=== PATIENT | female | born 1945 | race Caucasian/White ===

== ENCOUNTER 2020-04-26 10:16 | Observation (INO) ==
--- NOTE | 2020-03-17 11:40 | PAT Medication Instructions ---
Medication Instructions Date of Service March 17, 2020 Home Medications atorvastatin 40 mg tablet 40 mg PO HS citalopram 10 mg tablet 10 mg PO QAM citalopram 20 mg tablet 20 mg PO QAM clindamycin phosphate 1 % lotion 1 appln TOP BID diclofenac sodium 1 % topical gel 4 gm TOP .COMPLEX doxycycline hyclate 50 mg capsule 50 mg PO Q2D insulin aspar prt-insulin aspart 100 unit/mL (70-30) subcutaneous soln See Rx Instructions lorazepam 1 mg tablet 1 mg PO QAM losartan 100 mg tablet 100 mg PO QAM metformin 850 mg tablet 850 mg PO BID vitamins A,C,D-uhhn-uprefa 14,320 unit-226 mg-200 unit capsule 1 cap PO BID amlodipine 5 mg tablet 5 mg PO QDL cyanocobalamin (vitamin B-12) 1,000 mcg capsule 1,000 mcg PO QAM aspirin [Enteric Coated Aspirin] 81 mg PO QAM atenolol 50 mg PO HS cholecalciferol (vitamin D3) 2,000 units PO QAM empagliflozin [Jardiance] 25 mg PO QDL tolterodine 2 mg PO QAM Continue as directed doxycycline hyclate 50 mg capsule 50 mg PO Q2D amlodipine 5 mg tablet 5 mg PO QDL (if surgery is later in the day- take medication as usual) STOP taking 2 weeks before surgery vitamins A,C,R-vzlk-yejtli 14,320 unit-226 mg-200 unit capsule 1 cap PO BID STOP taking 24 hours before surgery clindamycin phosphate 1 % lotion 1 appln TOP BID diclofenac sodium 1 % topical gel 4 gm TOP .COMPLEX DO NOT take the morning of surgery losartan 100 mg tablet 100 mg PO QAM metformin 850 mg tablet 850 mg PO BID cyanocobalamin (vitamin B-12) 1,000 mcg capsule 1,000 mcg PO QAM cholecalciferol (vitamin D3) 2,000 units PO QAM empagliflozin [Jardiance] 25 mg PO QDL tolterodine 2 mg PO QAM Take morning of surgery With a small sip of water, OTHERWISE NOTHING TO EAT OR DRINK AFTER MIDNIGHT: citalopram 10 mg tablet 10 mg PO QAM citalopram 20 mg tablet 20 mg PO QAM lorazepam 1 mg tablet 1 mg PO QAM aspirin [Enteric Coated Aspirin] 81 mg PO QAM Take evening before surgery atorvastatin 40 mg tablet 40 mg PO HS insulin aspar prt-insulin aspart 100 unit/mL (70-30) subcutaneous soln See Rx Instructions metformin 850 mg tablet 850 mg PO BID atenolol 50 mg PO HS empagliflozin [Jardiance] 25 mg PO QDL Insulin Dependent Diabetic Patients * Test your blood sugar the morning of surgery * If Blood Sugar is GREATER THAN 150, take HALF of your regular dose of: insulin aspar prt-insulin aspart 100 unit/mL (70-30) subcutaneous soln (10 units) * If Blood Sugar is LESS THAN 150, DO NOT TAKE ANY: insulin aspar prt-insulin aspart 100 unit/mL (70-30) subcutaneous soln Other Notes If you have any questions please call us at [phone] or [phone] or [phone] or [phone]
--- NOTE | 2020-03-19 14:33 | Anesthesiology Consultation ---
Date of Service March 19, 2020 Assessment & Plan (1) Encounter for pre-operative examination: COVID Status: As of 03/19 assessment, patient denies travel to endemic area, known exposure/sick contacts, or symptoms of COVID19. Patient instructed that they and their household members must follow strict social distancing guidelines, wear a mask in public and avoid travel/events/gatherings for 14 days prior to surgery. Preoperative COVID19 testing to be completed prior to surgery per surgeon's arrangements (patient states she was given a date but does not have it with her currently). Patient made aware to self-isolate as much as possible between COVID testing and surgery. BSG AM DOS Chart Review Chart Review: Acceptable Risk for Surgery and Patient seen in Pre Admission Testing Teaching & Discussion Instructed NPO after midnight before surgery, except medications with 15 cc of water. Medication instructions provided according to the PAT guidelines. History Surgery Operation Date: 04/26/20 07:00 Proposed Procedures p Left Total Knee Arthroplasty - Rigoberto Mcqueen MD Height/Weight Height: 5 ft 5 in Weight: 87.4 kg Allergies Allergy/AdvReac Type Severity Reaction Status Date / Time No Known Allergies Allergy Verified 03/04/20 10:32 Medications Home Medications Medication Instructions Recorded Confirmed Last Taken atorvastatin 40 mg tablet 40 mg PO HS 03/12/19 03/04/20 Unknown citalopram 10 mg tablet 10 mg PO QAM 03/12/19 03/04/20 Unknown citalopram 20 mg tablet 20 mg PO QAM 03/12/19 03/04/20 Unknown clindamycin phosphate 1 % lotion 1 appln TOP BID 03/12/19 03/04/20 Unknown diclofenac sodium 1 % topical gel 4 gm TOP .COMPLEX 03/12/19 03/04/20 Unknown doxycycline hyclate 50 mg capsule 50 mg PO Q2D cap 03/12/19 03/04/20 Unknown insulin aspar prt-insulin aspart See Rx Instructions .ROUTE .COMPLEX 03/12/19 03/04/20 Unknown 100 unit/mL (70-30) subcutaneous soln lorazepam 1 mg tablet 1 mg PO QAM tab 03/12/19 03/04/20 Unknown losartan 100 mg tablet 100 mg PO QAM 03/12/19 03/04/20 Unknown metformin 850 mg tablet 850 mg PO BID tab 03/12/19 03/04/20 Unknown vitamins A,C,R-pshg-qbkcvu 14,320 1 cap PO BID 03/12/19 03/04/20 Unknown unit-226 mg-200 unit capsule amlodipine 5 mg tablet 5 mg PO QDL 03/14/19 03/04/20 Unknown blood sugar diagnostic #10 ea 03/14/19 03/04/20 Unknown cyanocobalamin (vitamin B-12) 1,000 mcg PO QAM 03/14/19 03/04/20 Unknown 1,000 mcg capsule lancets #50 ea 03/14/19 03/04/20 Unknown aspirin [Enteric Coated Aspirin] 81 mg PO QAM 03/04/20 03/04/20 Unknown atenolol 50 mg PO HS 03/04/20 03/04/20 Unknown cholecalciferol (vitamin D3) 2,000 units PO QAM 03/04/20 03/04/20 Unknown empagliflozin [Jardiance] 25 mg PO QDL 03/04/20 03/04/20 Unknown tolterodine 2 mg PO QAM 03/04/20 03/04/20 Unknown Past Medical History Medical History Anxiety Depression Hyperlipidemia Hypertension Osteoarthritis Secondary hyperparathyroidism T2DM (type 2 diabetes mellitus) IDDM Urinary incontinence Exercise / Class Metabolic Activity II 4-5 Yardwork/Stairs/Walk up hill (Denies Cp or SOB with 1 FOS just moving slowly 2/2 knee pain) Past Family History Family History Mother , 87 years old. Diabetes Hypertension Father , 83 years old. No problems noted. Brother , 55 years old. Heart disease Hypertension Sister , 52 years old. Hypertension Heart disease Arthritis Brother Coronary heart disease Diabetes Hypertension Past Surgical History Surgical History Basal cell carcinoma resection (right ear) History of bilateral cataract extraction 2017 History of carpal tunnel release of both wrists History of colonoscopy History of right shoulder replacement 2010 History of tooth extraction History of tubal ligation 1976 Past Anesthesia History No Hx of Anesthesia Complications and No Family Hx of Anesthesia Complications (other than PONV) History of PONV No Hx of PONV and No Hx of Motion Sickness Social History Smoking Status: Former smoker Do You Dip or Chew Tobacco: No Smoking End Date: 40 YRS AGO Hx Alcohol Use: No Hx Substance Use: No substance use type: does not use Review of Systems Pt denies any recent chest pain, shortness of breath, palpitations, cough, fever, URI, or uncontrolled acid reflux. Physical Exam Vital Signs BP: 119/62 P: 76bpm SPO2: 93% RA T: 98.2 F R: 16 ENMT Mouth: + dentures (full upper) and + dental restorations; no chipped teeth and no loose teeth Thyromental Distance: > or= 3.5 Finger Breadths Mallampati Class: II Missing all but 5 teeth on the bottom. Neck + short neck; neck extension not limited Respiratory normal respiratory effort, lungs clear to auscultation Cardiovascular RRR, no murmur, no edema Vessels: no carotid bruit Testing Laboratory Results 03/19/20 14:45 03/19/20 14:45 PT 10.1 Seconds (9.0-12.0) 03/19/20 14:45 INR 1.0 (0.9-1.1) 03/19/20 14:45 APTT 24.7 Seconds (21.0-31.0) 03/19/20 14:45 Hemoglobin A1c 8.0 % (4.5-5.6) H 03/19/20 14:45 Urine Color Yellow 03/19/20 Unknown Urine Appearance Clear (Clear) 03/19/20 Unknown Urine pH 5.0 (4.5-7.5) 03/19/20 Unknown Ur Specific [place] 1.033 (1.000-1.030) H 03/19/20 Unknown Urine Protein Negative (Negative) 03/19/20 Unknown Urine Glucose (UA) 3+ (Negative) H 03/19/20 Unknown Urine Ketones Negative (Negative) 03/19/20 Unknown Urine Nitrite Negative (Negative) 03/19/20 Unknown Ur Leukocyte Esterase Negative (Negative) 03/19/20 Unknown Blood Type A Positive 03/19/20 14:45 Antibody Screen NEGATIVE 03/19/20 14:45 *surgeon's office flagged re: elevated glucose. Electrocardiogram Date: 03/19/20 Findings: + NSR @ (72bpm) Nonspecific ST abnormality. Compared to EKG from 02/15/10, NSTWA has replaced inverted T waves in inferior leads. Chest X-Ray Date: 03/19/20 IMPRESSION: Suspected trace right pleural effusion. Mild basilar interstitial thickening with suspected left basilar subsegmental atelectatic change. No evidence of lobar consolidation
--- NOTE | 2020-03-19 15:20 | XRay Report ---
XR chest Pre-admission PA/Lat CLINICAL HISTORY: Preoperative chest COMPARISON STUDY: February 2010 FINDINGS: The heart is normal in size. There is mild basilar interstitial thickening. There is a susp ected trace pleural effusion. There are linear opacities the left lung base, likely atelectatic.[Ther e is no failure. IMPRESSION: Suspected trace right pleural effusion. Mild basilar interstitial thickening with suspect ed left basilar subsegmental atelectatic change. No evidence of lobar consolidation ACT 112: Negative or not required by law. Electronically signed by: Praful Lei M.D. 03/19/2020 3:19 PM
[2020-03-19 15:22] LABS: Basophils # (auto) 0.02 K/uL (0-0.2); Basophils % (auto) 0.3 %; Eosinophils # (auto) 0.12 K/uL (0-0.5); Hematocrit (blood only) 43.5 % (37-47); Lymphocytes # (auto) 2.54 K/uL (1.2-3.4); Lymphocytes % (auto) 42.8 %; Mean Corpuscular Hemoglobin 30.4 pg (25-34); Mean Corpuscular Hgb Conc 32.2 g/dL (32-36); Mean Corpuscular Volume 94.6 fL (80-100); Mean Platelet Volume 11.5 fL (7.4-10.4); Monocytes # (auto) 0.35 K/uL (0.11-0.59); Monocytes % (auto) 5.9 %; Neutrophils # (auto) 2.91 K/uL (1.4-6.5); Platelet Count 194 K/uL (130-400); RDW Coefficient of Variation 13.3 % (11.5-14.5); RDW Standard Deviation 45.3 fL (36.4-46.3); White Blood Count 5.94 K/uL (4.8-10.8)
[2020-03-19 15:24] LABS: Appearance Urine Clear (Clear); Bilirubin Urine Negative (Negative); Blood Urine Negative (Negative); Color Urine Yellow; Glucose Urine UA 3+ (Negative); Ketones Urine Negative (Negative); Leukocyte Esterase Urine Negative (Negative); Nitrite Urine Negative (Negative); Protein Urine Negative (Negative); Specific Gravity Urine 1.033 (1.000-1.030); Urobilinogen Urine Negative (Negative)
[2020-03-19 15:25] LABS: Albumin Level 3.5 gm/dl (3.4-5.0); BUN Creatinine Ratio 20.8 (10-20); Calcium 9.8 mg/dl (8.5-10.1); Creatinine Clr Calc Pharmacy 67.2 ml/min; Est GFR (African American) 84.9; Est GFR (Non-African American) 73.2
[2020-03-19 15:32] LABS: Partial Thromboplastin Ratio 0.9; Partial Thromboplastin Time 24.7 Seconds (21.0-31.0); Prothrombin Time 10.1 Seconds (9.0-12.0)
[2020-03-20 06:19] LABS: Estimated Average Glucose 183 mg/dl
--- NOTE | 2020-03-20 11:05 | Electrocardiogram Report ---
Test Reason : Blood Pressure : / mmHG Vent. Rate : 072 BPM Atrial Rate : 072 BPM P-R Int : 198 ms QRS Dur : 096 ms QT Int : 424 ms P-R-T Axes : 086 066 066 degrees QTc Int : 464 ms Normal sinus rhythm Nonspecific ST abnormality Abnormal ECG When compared with ECG of 15-FEB-2010 13:57, Nonspecific T wave abnormality has replaced inverted T waves in Inferior leads Confirmed by Bird Ríos ([id number]) on 03/20/2020 11:05:07 AM Referred By: Rigoberto Mcqueen Confirmed By:Joao Ríos
--- NOTE | 2020-04-17 11:06 | History & Physical Report ---
Date of Service April 17, 2020 Assessment & Plan (1) Primary osteoarthritis of left knee: Treatment options discussed with patient. She has failed conservative measures as above. Risks, benefits and alternatives to surgery including but not limited to infection, DVT, pain, stiffness, need for revision surgery, damage to blood vessels, damage to nerves, PE, , were discussed with the patient and they wish to proceed. Plan will be for left total knee arthroplasty at [facility] on 04/26/[address] Mcqueen. All questions were answered. Will plan on aspirin 81mg BID x 1 mo post op for DVT prophylaxis. Will plan on HHPT post discharge. Will likely plan on 1 week of Cefadroxil as antibiotic prophylaxis at discharge as a precaution. All questions answered. F/u post operatively. History of Present Illness Chief Complaint: Left knee pain Primary Care Provider: Dolroes Hassan DO 74 year old female with PMHx significant for HTN, high cholesterol, DM2, hyperparathyroid, and axiety presents with longstanding left knee pain. Pain interfering with ability to carry out daily activity. She has failed conservative measures including injections and anit-inflammatories. She would like to proceed with knee replacement. Patient denies headaches, sweats, fevers, chills, double vision, blurred vision, cough, sore throat, dysphagia, chest pain, sob, wheezing, n/v/d/c, numbness, tingling, fatigue, urinary symptoms, mood disorders. ROS positive for left knee pain and stiffness. Allergies Allergy/AdvReac Type Severity Reaction Status Date / Time No Known Allergies Allergy Verified 03/04/20 10:32 Home Medications Medication Instructions Recorded Confirmed Type atorvastatin 40 mg tablet 40 mg PO HS 03/12/19 03/04/20 History citalopram 10 mg tablet 10 mg PO QAM 03/12/19 03/04/20 History citalopram 20 mg tablet 20 mg PO QAM 03/12/19 03/04/20 History clindamycin phosphate 1 % lotion 1 appln TOP BID 03/12/19 03/04/20 History diclofenac sodium 1 % topical gel 4 gm TOP .COMPLEX 03/12/19 03/04/20 History doxycycline hyclate 50 mg capsule 50 mg PO Q2D cap 03/12/19 03/04/20 History insulin aspar prt-insulin aspart See Rx Instructions .ROUTE .COMPLEX 03/12/19 03/04/20 History 100 unit/mL (70-30) subcutaneous soln lorazepam 1 mg tablet 1 mg PO QAM tab 03/12/19 03/04/20 History losartan 100 mg tablet 100 mg PO QAM 03/12/19 03/04/20 History metformin 850 mg tablet 850 mg PO BID tab 03/12/19 03/04/20 History vitamins A,C,N-jjro-uvkcro 14,320 1 cap PO BID 03/12/19 03/04/20 History unit-226 mg-200 unit capsule amlodipine 5 mg tablet 5 mg PO QDL 03/14/19 03/04/20 History blood sugar diagnostic #10 ea 03/14/19 03/04/20 History cyanocobalamin (vitamin B-12) 1,000 mcg PO QAM 03/14/19 03/04/20 History 1,000 mcg capsule lancets #50 ea 03/14/19 03/04/20 History aspirin [Enteric Coated Aspirin] 81 mg PO QAM 03/04/20 03/04/20 History atenolol 50 mg PO HS 03/04/20 03/04/20 History cholecalciferol (vitamin D3) 2,000 units PO QAM 03/04/20 03/04/20 History empagliflozin [Jardiance] 25 mg PO QDL 03/04/20 03/04/20 History tolterodine 2 mg PO QAM 03/04/20 03/04/20 History Past Med/Surg History Medical History Anxiety Depression Hyperlipidemia Hypertension Osteoarthritis Secondary hyperparathyroidism T2DM (type 2 diabetes mellitus) IDDM Urinary incontinence Surgical History Basal cell carcinoma resection (right ear) History of bilateral cataract extraction 2017 History of carpal tunnel release of both wrists History of colonoscopy History of right shoulder replacement 2010 History of tooth extraction History of tubal ligation 1976 Family History Mother , 87 years old. Diabetes Hypertension Father , 83 years old. No problems noted. Brother , 55 years old. Heart disease Hypertension Sister , 52 years old. 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 Other Information That Helps Us Care for You: No Feels Safe at Home: Yes Safety Concerns: Feels Safe At This Time Assistive Devices: Denture - Upper and Glasses Assistive Devices Comment: PARTIAL LOWER Review of Systems All systems reviewed & are unremarkable except as noted in HPI & below Physical Exam Constitutional: well developed and well nourished; no acute distress Eyes: PERRL, conjunctivae normal, anicteric sclerae ENMT: external ear and nose normal, oropharynx normal Neck: trachea midline, no thyromegaly Respiratory: normal respiratory effort, lungs clear to auscultation Cardiovascular: RRR, no murmur, no edema Musculoskeletal: Left knee: Varus alignment, mild effusion. Tenderness medial joint line. Positive Aftab's. Stable to valgus and varus stress. ROM 10-125 degrees. Skin: no rashes, warm and dry Neurologic: patellar DTR's 2+ bilat, sensation intact Psychiatric: A+Ox3, euthymic affect Results & Data ([facility]) Laboratory Results Lab Results 03/19/20 03/19/20 03/19/20 Range/Units 14:45 14:45 14:45 WBC 5.94 (4.8-10.8) K/uL RBC 4.60 (4.2-5.4) M/uL Hgb 14.0 (12.0-16.0) g/dL Hct 43.5 (37-47) % MCV 94.6 (80-100) fL MCH 30.4 (25-34) pg MCHC 32.2 (32-36) g/dL RDW Std Deviation 45.3 (36.4-46.3) fL RDW Coeff of Pascale 13.3 (11.5-14.5) % Plt Count 194 (130-400) K/uL MPV 11.5 H (7.4-10.4) fL Immature Gran % (Auto) 0.0 % Neut % (Auto) 49.0 % Lymph % (Auto) 42.8 % [place] % (Auto) 5.9 % Eos % (Auto) 2.0 % Baso % (Auto) 0.3 % Neut # (Auto) 2.91 (1.4-6.5) K/uL Lymph # (Auto) 2.54 (1.2-3.4) K/uL [place] # (Auto) 0.35 (0.11-0.59) K/uL Eos # (Auto) 0.12 (0-0.5) K/uL Baso # (Auto) 0.02 (0-0.2) K/uL Immature Gran # (Auto) 0.00 (0.00-0.02) K/uL PT 10.1 (9.0-12.0) Seconds INR 1.0 (0.9-1.1) APTT 24.7 (21.0-31.0) Seconds PTT Ratio 0.9 Sodium (136-145) mmol/L Potassium (3.5-5.1) mmol/L Chloride (98-107) mmol/L Carbon Dioxide (21-32) mmol/L Anion Gap (3-11) BUN (7-18) mg/dl Creatinine (0.6-1.2) mg/dl Est Cr Clr Drug Dosing ml/min Est GFR ( Amer) Est GFR (Non-Af Amer) BUN/Creatinine Ratio (10-20) Glucose (70-99) mg/dl Estimat Average Glucose mg/dl Hemoglobin A1c (4.5-5.6) % Calcium (8.5-10.1) mg/dl Albumin (3.4-5.0) gm/dl Urine Color Urine Appearance (Clear) Urine pH (4.5-7.5) Ur Specific [place] (1.000-1.030) Urine Protein (Negative) Urine Glucose (UA) (Negative) Urine Ketones (Negative) Urine Blood (Negative) Urine Nitrite (Negative) Urine Bilirubin (Negative) Urine Urobilinogen (Negative) Ur Leukocyte Esterase (Negative) Blood Type A Positive Antibody Screen NEGATIVE 03/19/20 03/19/20 03/19/20 Range/Units 14:45 14:45 Unknown WBC (4.8-10.8) K/uL RBC (4.2-5.4) M/uL Hgb (12.0-16.0) g/dL Hct (37-47) % MCV (80-100) fL MCH (25-34) pg MCHC (32-36) g/dL RDW Std Deviation (36.4-46.3) fL RDW Coeff of Pascale (11.5-14.5) % Plt Count (130-400) K/uL MPV (7.4-10.4) fL Immature Gran % (Auto) % Neut % (Auto) % Lymph % (Auto) % [place] % (Auto) % Eos % (Auto) % Baso % (Auto) % Neut # (Auto) (1.4-6.5) K/uL Lymph # (Auto) (1.2-3.4) K/uL [place] # (Auto) (0.11-0.59) K/uL Eos # (Auto) (0-0.5) K/uL Baso # (Auto) (0-0.2) K/uL Immature Gran # (Auto) (0.00-0.02) K/uL PT (9.0-12.0) Seconds INR (0.9-1.1) APTT (21.0-31.0) Seconds PTT Ratio Sodium 140 (136-145) mmol/L Potassium 4.0 (3.5-5.1) mmol/L Chloride 107 (98-107) mmol/L Carbon Dioxide 30 (21-32) mmol/L Anion Gap 3.0 (3-11) BUN 16 (7-18) mg/dl Creatinine 0.79 (0.6-1.2) mg/dl Est Cr Clr Drug Dosing 67.2 ml/min Est GFR ( Amer) 84.9 Est GFR (Non-Af Amer) 73.2 BUN/Creatinine Ratio 20.8 H (10-20) Glucose 241 H (70-99) mg/dl Estimat Average Glucose 183 mg/dl Hemoglobin A1c 8.0 H (4.5-5.6) % Calcium 9.8 (8.5-10.1) mg/dl Albumin 3.5 (3.4-5.0) gm/dl Urine Color Yellow Urine Appearance Clear (Clear) Urine pH 5.0 (4.5-7.5) Ur Specific [place] 1.033 H (1.000-1.030) Urine Protein Negative (Negative) Urine Glucose (UA) 3+ H (Negative) Urine Ketones Negative (Negative) Urine Blood Negative (Negative) Urine Nitrite Negative (Negative) Urine Bilirubin Negative (Negative) Urine Urobilinogen Negative (Negative) Ur Leukocyte Esterase Negative (Negative) Blood Type Antibody Screen Diagnostic Findings Left knee radiographs: Tricompartmental arthritic change. Bone on bone medial compartment with subchondral sclerosis. Periarticular osteophyte formation
[~2020-04-26 10:16] MED LIST: BUPIVACAINE 0.25% 30 ML VIAL ONE; BUPIVACAINE 0.5 % 5 MG/1 ML PF 10ML VIAL ONE; LR 500ML BOLUS, THEN 15ML/HR IV SCH; ROPIVACAINE 0.5% HCL/PF 150 MG, BUPIVACAINE 0.75% MPF 20 ML, EPINEPHrine 30MG/30ML (OR ... INSTIL SCH
[2020-04-26] MEDS ORDERED: fentaNYL citrate 100 MCG/2 ML VIAL ONE (11:09)
[2020-04-26] MEDS ORDERED: MIDAZOLAM HCL 1 MG/ML 2ML VIAL ONE (11:09)
[2020-04-26] MEDS ORDERED: ceFAZolin 2000MG 2,000 MG/15 ML SYR IV ONE (11:37)
--- NOTE | 2020-04-26 11:40 | History & Physical Bridge Note ---
Date of Service April 26, 2020 History & Physical Bridge Note I have examined the patient, reviewed the History & Physical and in the interval since the performance of the History & Physical I have noted the following changes of clinical significance: no changes noted
[2020-04-26] MEDS ORDERED: fentaNYL citrate 100 MCG/2 ML VIAL IV PRN (12:16)
[2020-04-26] MEDS ORDERED: ATROPINE SULFATE 0.1 MG/ML 10ML SYR IV PRN (12:16)
[2020-04-26] MEDS ORDERED: ePHEDrine sulfate 50 MG/ML AMP IV PRN (12:16)
[2020-04-26] MEDS ORDERED: ONDANSETRON INJ 2 MG/ML 2 ML VIAL IV PRN ×2 (12:16→16:53)
[2020-04-26] MEDS ORDERED: ORTHO JOINT ANESTHETIC ONE (12:57)
[2020-04-26] MEDS ORDERED: BACITRACIN INJ 50,000 UNIT VIAL ONE (12:57)
[2020-04-26] MEDS ORDERED: PROPOFOL IV EMULSION 10 MG/ML 20 ML VIAL IV ONE ×2 (14:06→15:02)
[2020-04-26] MEDS ORDERED: LIDOCAINE HCL 2% 2 ML VIAL/AMP(20MG/ML) INFIL ONE (14:06)
--- NOTE | 2020-04-26 15:28 | Operative Report ---
Post Operative Report Pre & Post Diagnosis Operation Date: 04/26/20 12:50 Pre-Op Diagnosis: Osteoarthritis, Left Knee Post-Op Diagnosis: Osteoarthritis, Left Knee I identified the patient and participated in the time-out.: Yes Procedure Operation Date: 04/26/20 12:50 Actual Procedures p Left Total Knee Arthroplasty(Left) - Rigoberto Mcqueen MD Surgeon Rigoberto Mcqueen MD Milk Tester Daniel RODRÍGUEZ Estimated Blood Loss 5 Findings Consistent with Post-Op Diagnosis Specimens Bone cuts Drains 2 Hemovac Anesthesia Type MAC Spinal Regional Complications none Disposition Accompanied Patient To Recovery: No Disposition: Recovery Room Indications 74-year female with chronic progressive osteoarthritis in her left knee. Radiographs demonstrate she is [id number] medial compartment shows tricompartment osteoarthritis. Patient is failed conservative management. Description of Procedure Patient was taken to the operating room placed supine on the operating table and anesthetized under spinal MAC regional anesthesia. Exam under anesthesia demonstrated good range of motion 0 through 130 degrees. A pneumatic tourniquet was placed about the thigh of the left lower extremity. The left lower extremity was prepped and draped in usual fashion. The leg was elevated exsanguinated with an Esmarch bandage and the pneumatic was raised to 325 mm mercury. An anterior incision was made across the left knee. The skin was incised longitudinally subcutaneous flaps were elevated and an incision was made through the medial retinaculum extending up into the mid third of the quadriceps tendon and extended down to the medial tibial tubercle. Intra-articular findings demonstrated tricompartmental osteoarthritis grade 4 lesion on the lateral femoral condyle and completely eburnated bone on the medial femoral condyle and tibia. Large patellar osteophyte circumferentially.. The knee was exposed by excising the infrapatellar fat pad, excising the meniscal remnants and anterior cruciate ligament. Any inflamed synovial tissue was resected. The fat pad over the anterior femur was resected for placement of the component in that area. The lateral synovial bands were release. The femur was exposed. The custom femoral cutting block was pinned in position. The distal femoral cutting block was applied. The distal femoral cut was made with the oscillating saw. The size 7, 4-in-1 cutting block was placed. The anterior and posterior chamfer cuts were made. The knee was extended and a subperiosteal peel lateral release was performed around the patella. The patella width was measured and width was reproduced using freehand cut technique. The 32 x 8.5 millimeter symmetrical patella was used. 3 drill holes are made for the pegs. The tibia was exposed. A custom tibial cutting block was positioned and drill holes were made for the cutting guide. Cutting guide was placed and the proximal cut was made with the oscillating saw. All osteophytes were resected. The lamina electroneurodiagnostic technologist was used to assess ligamentous balance and the ligaments were balanced in extension and flexion. The tibia was reexposed and measured for a size D tibial component. This was externally rotated in line with the tibial tubercle and the fixation pins were drilled. The proximal tibia was fashioned with the drill and punch. The size 7 CR femoral trial was inserted. The trial MC inserts were used. The 10 mm insert gave balanced ligaments through full range of motion. The patella tracked central. the trials were removed. The orthomix anesthetic cocktail was injected per protocol. The knee was then copiously irrigated with pulsatile lavage antibiotic solution with bacitracin. The final components were cemented with Simplex cement. The final components were [employer] persona CR size 7 narrow left femoral component, the tibial component, 10 MC polyethylene tibial insert, 32 x 8.5 symmetrical patella. After the cement cured with the knee in full extension the Betadine soak was used per protocol. The knee joint was copiously irrigated with antibiotic solution with bacitracin. 2 drains were brought out laterally and connected to a Hemovac. The quadriceps tendon and medial retinaculum were closed with interrupted [id number] #1 Vicryl sutures. The knee was taken through a full range of motion and repair was secure. The subcutaneous tissues were closed with 2-0 Vicryl sutures and skin was closed with ronit. Sterile dressings were applied and the patient tolerated the procedure well. Daniel RODRÍGUEZ my physician financial planning assistant, assisted in soft tissue retraction instrument management leg positioning the closure and will participate in the postoperative care of the patient. I attest to the content of the Intraoperative Record and any orders documented therein. Any exceptions are noted below.
--- NOTE | 2020-04-26 16:15 | XRay Report ---
XR knee LT 1 or 2V routine HISTORY: 74 years-old Female Surgical Post Op left knee total joint arthroplasty COMPARISON: None TECHNIQUE: 2 views of the left knee FINDINGS: Left knee total joint arthroplasty and patella resurfacing. Anterior midline skin ronit are noted a long with expected postsurgical soft tissue swelling and deep tissue air with surgical drainage khalif ter. Satisfactory alignment without acute fracture or unexpected opaque foreign body. IMPRESSION: Left knee total joint arthroplasty and patella resurfacing with expected postoperative ch anges. ACT 112: Negative or not required by law. The above report was generated using voice recognition software. It may contain grammatical, syntax o r spelling errors. Electronically signed by: Clifford Reid M.D. 04/26/2020 4:13 PM
--- NOTE | 2020-04-26 16:50 | Anesthesiology Progress Note ---
Date of Service April 26, 2020 Anesthesia Post Procedure Vital Signs Vital Signs: Temp Pulse Pulse Resp BP BP Pulse Ox 04/26/20 16:40 36.8 C 58 L 20 149/76 H 96 04/26/20 16:30 36.8 C 57 L 15 155/86 H 99 04/26/20 16:20 60 21 168/76 H 99 04/26/20 16:10 55 L 20 153/78 H 100 04/26/20 16:01 36.6 C 59 L 16 151/82 H 100 04/26/20 10:56 36.8 C 66 18 147/82 H 95 Transfer of Care Handoff Completed per policy Notes Mental Status: alert / awake / arousable Patient Amnestic to Procedure: Yes Nausea / Vomiting: adequately controlled Pain: adequately controlled Airway Patency, RR, SpO2: stable & adequate BP & HR: stable & adequate Hydration State: stable & adequate Neuraxial Anesthesia: was administered and sensory block is resolving Anesthetic Complications: no major complications apparent and Pt Satisfied with anesthetic care
[2020-04-26] MEDS ORDERED: bisacodyL 10 MG SUPP PR PRN (16:53)
[2020-04-26] MEDS ORDERED: MAGNESIUM HYDROXIDE SUSP 30 ML UDC PO PRN (16:53)
[2020-04-26] MEDS ORDERED: HYDROmorphone INJ 0.5 MG/0.5 ML SYR IV PRN (16:53)
[2020-04-26] MEDS ORDERED: NALOXONE HCL 0.4 MG/1 ML VIAL/CARP IV PRN (16:53)
[2020-04-26] MEDS ORDERED: PHARMACY GLYCEMIC MGMT CONSULT PRN (17:12)
[2020-04-26] MEDS ORDERED: GLUCAGON FOR INJ 1 MG VIAL IM PRN (17:15)
[2020-04-26] MEDS ORDERED: CARBOHYDRATES FOR HYPOGLYCEMIA PO PRN (17:15)
[2020-04-26] MEDS ORDERED: GLUCOSE 40% GEL 15 GM TUBE PO PRN (17:15)
[2020-04-26] MEDS ORDERED: GLUCOSE 10 TABS/TUBE PO PRN (17:15)
[2020-04-26] MEDS ORDERED: DEXTROSE 50% 50 ML SYRINGE IV PRN (17:15)
[2020-04-26] MEDS ORDERED: INSULIN HUMAN NPH SC ONE (17:30)
[2020-04-26] MEDS: SODIUM CHLORIDE 0.9% 1000ML 1,000 ML IV SCH (17:44)
[2020-04-26] MEDS ORDERED: LORazepam 1 MG TAB PO PRN (18:08)
[2020-04-26] MEDS: FERROUS GLUCONATE 324 MG TAB PO SCH (18:11)
[2020-04-26] MEDS: INSULIN ASPART 100 UNITS/ML 3 ML PEN SC SCH ×2 (18:14→20:59)
--- NOTE | 2020-04-26 18:31 | Hospitalist Consultation ---
Date of Consultation April 26, 2020 Assessment & Plan (1) Primary osteoarthritis of left knee: - POD#[address] Mcqueen - activity and wound care orders as per ortho - pain control with bowel regimen - PT/OT - monitor H/H for acute blood loss anemia and transfuse blood products PRN (2) T2DM (type 2 diabetes mellitus): -hgb a1c 7.8 02/2020 -Glycemic pharmacy consult placed by orthopedics (3) Hypertension: -BP controlled, continue atenolol, losartan, and amlodipine; resume HCTZ on 04/28 (4) DVT prophylaxis: -ASA 81mg BID per ortho Thank you for this consultation. We will follow the patient with you during their hospital stay. You can reach a member of the [facility] Team 02/10 via pager @ [phone]. Supervising Physician Co-Signing Physician Notes Patient is a 73-year-old female with history of diabetes mellitus, hypertension and other medical problems was seen and examined postop after having left total knee arthroplasty by Dr. Mcqueen. Patient is doing well postop. Denies any chest pain, shortness of breath, dizziness, nausea, abdominal pain. Left knee surgical site pain is well controlled. Denies any numbness or tingling in the feet. Offers no complaints at this time. On exam patient is moderately built and nourished, no apparent distress, normocephalic atraumatic, lungs are clear to auscultation, S1-S2, no murmur, abdomen soft, nontender, normal bowel sounds, alert, awake, oriented, grossly no focal neurological deficits, left knee surgical site in dressing, no pedal edema. Patient is consulted for postop medical management. Pain control, activity, wound care, DVT prophylaxis as per primary team. Continue insulin therapy while hospitalized. Hold Metformin, Jardiance, hydrochlorothiazide for now. Monitor blood glucose levels. Check CBC in a.m. to monitor for postop anemia. Bowel regimen to prevent constipation. Incentive spirometry. I personally reviewed the record. Patient is interviewed and examined at bedside. Patient's care is coordinated with Teresa Ayers NP. Please refer to the documentation above for details of patient's presentation and for discussion of other issues. History of Present Illness Reason for Consultation: Postop medical management Requesting Physician: Dr. Mcqueen Attending Physician: Dr. Biggs History of Present Illness 74-year-old female with PMH DM type II, HTN, dyslipidemia, rosacea, depression and anxiety, and other problems listed below who is status post left total knee arthroplasty today by Dr. Mcqueen. Postoperatively, the patient is doing well. She reports her pain is well controlled. She denies chest pain or shortness of breath. No lightheadedness or dizziness. Lower extremity numbness from spinal anesthesia has resolved. Allergies Allergy/AdvReac Type Severity Reaction Status Date / Time No Known Allergies Allergy Verified 04/26/20 10:44 Home Medications Medication Instructions Recorded Confirmed Type atorvastatin 40 mg tablet 40 mg PO HS 03/12/19 04/26/20 History citalopram 10 mg tablet 10 mg PO QAM 03/12/19 04/26/20 History citalopram 20 mg tablet 20 mg PO QAM 03/12/19 04/26/20 History clindamycin phosphate 1 % lotion 1 appln TOP BID 03/12/19 04/26/20 History diclofenac sodium 1 % topical gel 4 gm TOP .COMPLEX 03/12/19 04/26/20 History doxycycline hyclate 50 mg capsule 50 mg PO Q2D cap 03/12/19 04/26/20 History insulin aspar prt-insulin aspart See Rx Instructions .ROUTE .COMPLEX 03/12/19 04/26/20 History 100 unit/mL (70-30) subcutaneous soln lorazepam 1 mg tablet 1 mg PO QAM tab 03/12/19 04/26/20 History losartan 100 mg tablet 100 mg PO QAM 03/12/19 04/26/20 History metformin 850 mg tablet 850 mg PO BID tab 03/12/19 04/26/20 History vitamins A,C,G-jhhx-imxodf 14,320 1 cap PO BID 03/12/19 04/26/20 History unit-226 mg-200 unit capsule amlodipine 5 mg tablet 5 mg PO QDL 03/14/19 04/26/20 History blood sugar diagnostic #10 ea 03/14/19 03/04/20 History cyanocobalamin (vitamin B-12) 1,000 mcg PO QAM 03/14/19 04/26/20 History 1,000 mcg capsule lancets #50 ea 03/14/19 03/04/20 History aspirin [Enteric Coated Aspirin] 81 mg PO QAM 03/04/20 04/26/20 History atenolol 50 mg PO HS 03/04/20 04/26/20 History cholecalciferol (vitamin D3) 2,000 units PO QAM 03/04/20 04/26/20 History empagliflozin [Jardiance] 25 mg PO QDL 03/04/20 04/26/20 History tolterodine 2 mg PO QAM 03/04/20 04/26/20 History hydrochlorothiazide 12.5 mg PO DAILY 04/26/20 04/26/20 History Patient History Medical History Anxiety Depression Hyperlipidemia Hypertension Osteoarthritis Rosacea Secondary hyperparathyroidism T2DM (type 2 diabetes mellitus) IDDM Urinary incontinence Surgical History Basal cell carcinoma resection (right ear) History of bilateral cataract extraction 2017 History of carpal tunnel release of both wrists History of colonoscopy History of right shoulder replacement 2010 History of tooth extraction History of tubal ligation 1976 Family History Mother , 87 years old. Diabetes Hypertension Father , 83 years old. No problems noted. Brother , 55 years old. Heart disease Hypertension Sister , 52 years old. 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 Other Information That Helps Us Care for You: No Feels Safe at Home: Yes Safety Concerns: Feels Safe At This Time Assistive Devices: Walker Assistive Devices Comment: upper plate Review of Systems Review of Systems: ROS per HPI, all other systems reviewed and negative Physical Exam Constitutional: WD/WN, vitals as above Eyes: PERRL, conjunctivae normal, anicteric sclerae ENMT: external ear and nose normal, oropharynx normal Respiratory: normal respiratory effort, lungs clear to auscultation Cardiovascular: Rate/Rhythm: regular rate and regular rhythm Vessels: normal peripheral pulses Extremities: no edema Gastrointestinal (Abdomen): normal bowel sounds, soft, nontender, no hepatosplenomegaly Musculoskeletal: no cyanosis or clubbing, extremities motor strength 5/5 s/p left surgery, surgical dressing intact, CSM checks intact to LLE Skin: no rashes, warm and dry Neurologic: PERRL, EOMI, accommodation nl, no face palsy, no dysarthria Psychiatric: A+Ox3, euthymic affect Results & Data Results & Data ([facility]) Vital Signs (Past 12 Hours) Vital Signs Temp Pulse Pulse Resp BP BP Pulse Ox 04/26/20 17:51 36.8 C 55 L 17 139/81 92 04/26/20 17:26 36.4 C L 66 17 157/74 H 93 04/26/20 17:00 36.9 C 57 L 16 168/76 H 04/26/20 16:40 36.8 C 58 L 20 149/76 H 96 04/26/20 16:30 36.8 C 57 L 15 155/86 H 99 04/26/20 16:20 60 21 168/76 H 99 04/26/20 16:10 55 L 20 153/78 H 100 04/26/20 16:01 36.6 C 59 L 16 151/82 H 100 04/26/20 10:56 36.8 C 66 18 147/82 H 95
[2020-04-26] MEDS: ASPIRIN 81 MG ECTAB PO SCH (20:57)
[2020-04-26] MEDS: DOCUSATE SODIUM 100 MG CAP PO SCH (20:57)
[2020-04-26] MEDS: ACETAMINOPHEN 500 MG TAB PO SCH (20:58)
[2020-04-26] MEDS: ATORVASTATIN 40 MG TAB PO SCH (20:58)
[2020-04-26] MEDS: ceFAZolin 2000MG 2,000 MG/15 ML SYR IV SCH (20:58)
[2020-04-26] MEDS: SENNA 8.6 MG TAB PO SCH (20:58)
[2020-04-26] MEDS: ATENOLOL 50 MG TABLET PO SCH (20:58)
[2020-04-26] MEDS ORDERED: NON-FORMULARY MEDICATION (Clindamycin Phosphate 1 % lotion) TOP SCH (21:00)
[2020-04-27] MEDS: INSULIN ASPART 100 UNITS/ML 3 ML PEN SC SCH ×6 (00:03→21:55)
[2020-04-27] MEDS: SODIUM CHLORIDE 0.9% 1000ML 1,000 ML IV SCH (03:26)
[2020-04-27] MEDS: ceFAZolin 2000MG 2,000 MG/15 ML SYR IV SCH (05:25)
[2020-04-27] MEDS: ACETAMINOPHEN 500 MG TAB PO SCH ×3 (05:25→21:58)
[2020-04-27 05:56] LABS: Hematocrit (blood only) 38.2 % (37-47); Hemoglobin 12.3 g/dL (12.0-16.0); Mean Corpuscular Hemoglobin 30.4 pg (25-34); Mean Corpuscular Hgb Conc 32.2 g/dL (32-36); Mean Corpuscular Volume 94.6 fL (80-100); Mean Platelet Volume 11.2 fL (7.4-10.4); Platelet Count 168 K/uL (130-400); RDW Coefficient of Variation 13.5 % (11.5-14.5); RDW Standard Deviation 46.7 fL (36.4-46.3); Red Blood Count 4.04 M/uL (4.2-5.4); White Blood Count 7.71 K/uL (4.8-10.8)
[2020-04-27 06:23] LABS: BUN Creatinine Ratio 28.1 (10-20); Calcium 9.4 mg/dl (8.5-10.1); Est GFR (African American) 100.2; Est GFR (Non-African American) 86.4
--- NOTE | 2020-04-27 07:21 | Anesthesiology Progress Note ---
Date of Service April 27, 2020 Anesthesia Post Procedure Vital Signs Vital Signs: Temp Pulse Pulse Resp BP BP Pulse Ox 04/27/20 03:08 36.6 C 62 16 155/79 H 96 04/26/20 22:43 36.7 C 60 16 116/63 93 04/26/20 19:50 36.6 C 64 18 167/77 H 94 04/26/20 18:41 36.8 C 61 17 154/82 H 95 04/26/20 17:51 36.8 C 55 L 17 139/81 92 04/26/20 17:26 36.4 C L 66 17 157/74 H 93 04/26/20 17:00 36.9 C 57 L 16 168/76 H 04/26/20 16:40 36.8 C 58 L 20 149/76 H 96 04/26/20 16:30 36.8 C 57 L 15 155/86 H 99 04/26/20 16:20 60 21 168/76 H 99 04/26/20 16:10 55 L 20 153/78 H 100 04/26/20 16:01 36.6 C 59 L 16 151/82 H 100 04/26/20 10:56 36.8 C 66 18 147/82 H 95 Notes Mental Status: alert / awake / arousable and participated in evaluation Patient Amnestic to Procedure: Yes Nausea / Vomiting: adequately controlled Pain: adequately controlled Airway Patency, RR, SpO2: stable & adequate BP & HR: stable & adequate Hydration State: stable & adequate Anesthetic Complications: no major complications apparent
--- NOTE | 2020-04-27 07:31 | Orthopedic Progress Note ---
Date of Service April 27, 2020 Assessment & Plan (1) Primary osteoarthritis of left knee: POD#1 left TKA -PT/OT -Pain management -DVT prophylaxis-ASA 81 mg BID x 1 mo, SCDs, TEDs -AM labs-hemoglobin at 12.3 from 14 preoperatively -D/C planning-home with home health PT when stable, likely tomorrow. Admission and Anticipated Discharge Date Admission Date: April 26, 2020 Subjective Patient is POD#1 left TKA. She is doing well this morning. Some pain but controlled. Has been up ambulating in the room without complication. She has no complaints. Denies chest pain, sob, dizziness, headache, n/v/d. Review of Systems Constitutional: as per Subjective / HPI Physical Exam Physical Exam: Left knee dressing is c/d/i. Hemovac in place. No calf tenderness. Toes are mobile. Good dorsiflexion. Distally n/v status and sensation are intact. Constitutional: well developed and well nourished; no acute distress Results & Data ([facility]) Vital Signs (Past 12 Hours) Vital Signs Temp Pulse Resp BP BP Pulse Ox 04/27/20 07:27 36.8 C 65 18 142/71 H 94 04/27/20 03:08 36.6 C 62 16 155/79 H 96 04/26/20 22:43 36.7 C 60 16 116/63 93 04/26/20 19:50 36.6 C 64 18 167/77 H 94
[2020-04-27] MEDS ORDERED: INSULIN HUMAN NPH SC ONE ×2 (08:00→17:00)
[2020-04-27] MEDS: DOCUSATE SODIUM 100 MG CAP PO SCH ×2 (08:43→20:24)
[2020-04-27] MEDS: ASPIRIN 81 MG ECTAB PO SCH ×2 (08:43→20:28)
[2020-04-27] MEDS: FERROUS GLUCONATE 324 MG TAB PO SCH ×2 (08:43→17:38)
[2020-04-27] MEDS: CITALOPRAM 20 MG TAB PO SCH (08:43)
[2020-04-27] MEDS: CHOLECALCIFEROL 1,000 UNITS 25 MCG TAB PO SCH (08:45)
[2020-04-27] MEDS: LOSARTAN POTASSIUM 50 MG TAB PO SCH (08:45)
[2020-04-27] MEDS: CYANOCOBALAMIN 500 MCG TABLET (VITAMIN B-12) PO SCH (08:45)
[2020-04-27] MEDS: MULTIVITAMIN TAB PO SCH (08:45)
[2020-04-27] MEDS: TOLTERODINE TARTRATE LA 2 MG CAPCR PO SCH (08:45)
[2020-04-27] MEDS: oxyCODONE HCL IR 5 MG TAB (IMMEDIATE RELEASE) PO PRN ×2 (08:53→17:42)
[2020-04-27] MEDS ORDERED: metFORMIN HCL 850 MG TAB PO SCH (09:00)
[2020-04-27] MEDS ORDERED: LORazepam 1 MG TAB PO SCH (09:00)
[2020-04-27] MEDS ORDERED: NON-FORMULARY MEDICATION (Citalopram 10 mg tablet) PO SCH (09:00)
--- NOTE | 2020-04-27 13:00 | Pharmacy Report ---
Pharmacy Glycemic Short Note 2 - Date of Service April 27, 2020 - Glycemic Short BSG Results (Last 24 hours): 04/26/20 04/26/20 04/26/20 13:29 15:56 16:55 Glucose POC Glucose 98 95 123 H 04/26/20 04/27/20 04/27/20 20:55 00:00 04:06 Glucose POC Glucose 189 H 149 H 132 H 04/27/20 04/27/20 04/27/20 05:20 08:08 12:09 Glucose 141 H POC Glucose 150 H 187 H OUTPATIENT ANTIDIABETIC REGIMEN: * JArdiance 25 mg QD, Novolog 70/30 20 units QAM, 26 units w/ supper, metformin 850 mg BIDM * A1c 8.0% 03/19/20 ASSESSMENT: * Patient admitted following TKA with likely discharge tomorrow. * BSGs ranged 95-189 mg/dL over the past 24 hours, received 10 units of NPH last night, will continue with NPH dosing, 10 units this AM with scale for dinner * Novolog currently being dosed as weight based stress of 2, continue for now PLAN FOR INPATIENT GLYCEMIC CONTROL: * Hold outpatient oral diabetes medications * Basal insulin * NPH 10 units SQ with breakfast, scale 10-15 units with dinner * Bolus insulin * NovoLog per scale ACHS or Q6hrs while NPO * Goal Range: Low 110 mg/dL - High 140 mg/dL * Correction Factor: 25 mg/dL/unit * Nutritional / Prandial insulin per carb ratio of 1 unit per 9 grams CHO consumed PLAN FOR DISCHARGE: * Patient's a1c 8.0%, may be acceptable for this patient, would resume patient's home regimen if not experiencing frequent hypoglycemia events and f/u with outpatient provider. Metformin could potentially be titrated up if tolerated.
[2020-04-27] MEDS: amLODIPine BESYLATE 5 MG TAB PO SCH (13:15)
--- NOTE | 2020-04-27 16:53 | Hospitalist Progress Note ---
Date of Service April 27, 2020 Assessment & Plan (1) Primary osteoarthritis of left knee: S/P left TKA POD#[address] Mcqueen Activity, pain control, wound care as per primary team On aspirin 81 mg twice daily for DVT prophylaxis as per Ortho Continue incentive spirometer Continue PT OT Bowel regimen to prevent constipation (2) T2DM (type 2 diabetes mellitus): hgb a1c 7.8 02/2020 Glycemic pharmacy consult placed by orthopedics Continue insulin therapy while hospitalized (3) Hypertension: continue atenolol, losartan, amlodipine Resume HCTZ as able (4) DVT prophylaxis: ASA 81mg BID per ortho Thank you for this consultation. We will follow the patient with you during their hospital stay. You can reach a member of the [facility] Hospitalist Team 02/10 via pager @ [phone]. Admission and Anticipated Discharge Date Admission Date: April 26, 2020 Subjective Patient is seen and examined at bedside Left knee pain is controlled Offers no other complaints Denies chest pain, dyspnea, dizziness, nausea, abdominal pain Review of Systems Review of Systems: All systems reviewed & are unremarkable except as noted in HPI & below Physical Exam Physical Exam: Physical Exam: Vitals signs as noted above General Appearance:Moderately built and nourished, no apparent distress Head: normocephalic, Atraumatic Eyes: normal inspection, EOMI Neck: supple, Trachea midline Respiratory/Chest: Normal breath sounds, CTA, No accessory muscle use Cardiovascular: S1, S2, No murmur Abdomen/GI:Soft, Non tender, Bowel sounds present Extremities/Musculoskelatal:normal inspection, no edema, + Lt knee in dressing Neurologic/Psych:AAOX3, grossly no focal neurological deficits Skin: normal color, warm Results & Data Results & Data ([facility] [place]) Vital Signs (Past 12 Hours) Vital Signs Temp Pulse Pulse Resp BP Pulse Ox 04/27/20 15:17 37.1 C 71 16 125/68 96 04/27/20 07:27 36.8 C 65 18 142/71 H 94 Laboratory Results Short CBC 04/27/20 Range/Units 05:20 WBC 7.71 (4.8-10.8) K/uL Hgb 12.3 (12.0-16.0) g/dL Hct 38.2 (37-47) % Plt Count 168 (130-400) K/uL BMP 04/27/20 05:20 Sodium 144 Potassium 4.0 Chloride 111 H Carbon Dioxide 30 BUN 18 Creatinine 0.66 Glucose 141 H Calcium 9.4
[2020-04-27] MEDS ORDERED: INSULIN HUMAN NPH SC SCH (17:00)
[2020-04-27] MEDS: ATENOLOL 50 MG TABLET PO SCH (20:23)
[2020-04-27] MEDS: SENNA 8.6 MG TAB PO SCH (20:23)
[2020-04-27] MEDS: ATORVASTATIN 40 MG TAB PO SCH (20:23)
[2020-04-28 05:33] LABS: Hematocrit (blood only) 34.6 % (37-47); Hemoglobin 11.4 g/dL (12.0-16.0)
[2020-04-28] MEDS: ACETAMINOPHEN 500 MG TAB PO SCH (05:49)
[2020-04-28 06:04] LABS: BUN Creatinine Ratio 20.6 (10-20); Calcium 9.5 mg/dl (8.5-10.1); Est GFR (African American) 101.5; Est GFR (Non-African American) 87.6; Potassium 3.9 mmol/L (3.5-5.1)
[2020-04-28] MEDS: CITALOPRAM 20 MG TAB PO SCH (07:27)
[2020-04-28] MEDS: FERROUS GLUCONATE 324 MG TAB PO SCH (07:28)
[2020-04-28] MEDS: LOSARTAN POTASSIUM 50 MG TAB PO SCH (07:28)
[2020-04-28] MEDS: DOCUSATE SODIUM 100 MG CAP PO SCH (07:28)
[2020-04-28] MEDS: ASPIRIN 81 MG ECTAB PO SCH (07:29)
[2020-04-28] MEDS: TOLTERODINE TARTRATE LA 2 MG CAPCR PO SCH (07:29)
[2020-04-28] MEDS: CYANOCOBALAMIN 500 MCG TABLET (VITAMIN B-12) PO SCH (07:30)
[2020-04-28] MEDS: MULTIVITAMIN TAB PO SCH (07:30)
[2020-04-28] MEDS: CHOLECALCIFEROL 1,000 UNITS 25 MCG TAB PO SCH (07:31)
[2020-04-28] MEDS: INSULIN ASPART 100 UNITS/ML 3 ML PEN SC SCH (07:39)
[2020-04-28] MEDS: INSULIN HUMAN NPH SC SCH ×2 (07:40→07:45)
[2020-04-28] MEDS ORDERED: metFORMIN HCL 850 MG TAB PO SCH (08:00)
--- NOTE | 2020-04-28 08:35 | Hospitalist Progress Note ---
Date of Service April 28, 2020 Assessment & Plan (1) Primary osteoarthritis of left knee: S/P left TKA POD#[address] Mcqueen Activity, pain control, wound care as per primary team On aspirin 81 mg twice daily for DVT prophylaxis as per Ortho Continue incentive spirometer Continue PT OT Bowel regimen to prevent constipation (2) T2DM (type 2 diabetes mellitus): hgb a1c 7.8 02/2020 Glycemic pharmacy consult placed by orthopedics Continue insulin therapy while hospitalized (3) Hypertension: continue atenolol, losartan, amlodipine Resume HCTZ (4) DVT prophylaxis: ASA 81mg BID per ortho Thank you for this consultation. We will follow the patient with you during their hospital stay. You can [facility] a [facility] via pager @ [phone]. Pt was seen and examined in collaboration with Dr. Bell, please see addendum Admission and Anticipated Discharge Date Admission Date: April 26, 2020 Supervising Physician Co-Signing Physician Notes Patient seen and examined by me. History physical exam as detailed by Wendy Ayala PA-C Patient reports pain is well controlled. Primary osteoarthritis of left knee status post left TKA postop day 2. Plan for possible discharge today by primary orthopedic team. Patient can resume all antihypertensive on discharge Continue PT/OT Follow-up Ortho outpatient Subjective Patient was seen and examined in room 304. Follow-up left TKA, T2DM, HTN. She is sitting up in bedside chair and overall doing well. She is anxious for physical therapy. She is anticipating being discharged home today. She denies fever, chills, sweats, lightheadedness, dizziness, chest pain, shortness breath, nausea, vomiting, abdominal pain. She is passing flatus and moving her bowels. Appetite has been great. Has not slept well in the past 2 nights. Review of Systems Review of Systems: All systems reviewed & are unremarkable except as noted in HPI & below Physical Exam Physical Exam: Gen: WD/WN, female, sitting in bedside chair, NAD, A&O x3 HEENT: Normocephalic, atraumatic, conjunctivae moist, sclerae anicteric, mucous membranes moist. Lung: Clear to Auscultation bilaterally, no wheezes/rales/rhonchi Heart: Regular rate, regular rhythm, no murmurs, rubs, or gallops Abdomen: Soft, NT, ND +BS x 4 Extremities: Trace left lower extremity edema, left TKA dressing CDI , no right lower extremity edema Skin: Warm, no rash, negative turgor. Results & Data Results & Data ([facility]) Vital Signs (Past 12 Hours) Vital Signs Temp Pulse Resp BP Pulse Ox 04/28/20 06:40 154/84 H 04/28/20 05:30 36.6 C 67 16 169/83 H 93 04/27/20 21:48 37.1 C 78 16 147/76 H 96 Laboratory Results Short CBC 04/28/20 Range/Units 05:14 Hgb 11.4 L (12.0-16.0) g/dL Hct 34.6 L (37-47) % BMP 04/28/20 05:14 Sodium 142 Potassium 3.9 Chloride 109 H Carbon Dioxide 29 BUN 13 Creatinine 0.62 Glucose 167 H Calcium 9.5 Medications Administered Acetaminophen (Acetaminophen 500 Mg Tab) 1,000 mg PO Q8 [facility] Stop: 05/26/20 21:59 Last Admin: 04/28/20 05:49 Dose: 1,000 mg Documented by: [id number] Admin: 04/27/20 21:58 Dose: 1,000 mg Documented by: [id number] Admin: 04/27/20 13:16 Dose: 1,000 mg Documented by: [id number] Admin: 04/27/20 05:25 Dose: 1,000 mg Documented by: [id number] Admin: 04/26/20 20:58 Dose: 1,000 mg Documented by: [id number] Amlodipine Besylate (Amlodipine Besylate 5 Mg Tab) 5 mg PO QDL [facility] Stop: 05/27/20 11:29 Last Admin: 04/27/20 13:15 Dose: 5 mg Documented by: [id number] Aspirin (Aspirin 81 Mg Ectab) 81 mg PO BID [facility] Stop: 05/26/20 20:59 Last Admin: 04/28/20 07:29 Dose: 81 mg Documented by: [id number] Admin: 04/27/20 20:28 Dose: 81 mg Documented by: [id number] Admin: 04/27/20 08:43 Dose: 81 mg Documented by: [id number] Admin: 04/26/20 20:57 Dose: Not Given Documented by: [id number] Atenolol (Atenolol 50 Mg Tablet) 50 mg PO HS [facility] Stop: 03/17/21 20:59 Last Admin: 04/27/20 20:23 Dose: 50 mg Documented by: [id number] Admin: 04/26/20 20:58 Dose: 50 mg Documented by: [id number] Atorvastatin Calcium (Atorvastatin 40 Mg Tab) 40 mg PO [facility] Stop: 05/26/20 20:59 Last Admin: 04/27/20 20:23 Dose: 40 mg Documented by: [id number] Admin: 04/26/20 20:58 Dose: 40 mg Documented by: [id number] Citalopram Hydrobromide (Citalopram 20 Mg Tab) 30 mg PO QAM [facility] Stop: 05/27/20 08:59 Last Admin: 04/28/20 07:27 Dose: 30 mg Documented by: [id number] Admin: 04/27/20 08:43 Dose: 30 mg Documented by: [id number] Cyanocobalamin (Cyanocobalamin 500 Mcg Tablet (Vitamin B-12)) 1,000 mcg PO QAM [facility] Stop: 05/27/20 08:59 Last Admin: 04/28/20 07:30 Dose: 1,000 mcg Documented by: [id number] Admin: 04/27/20 08:45 Dose: 1,000 mcg Documented by: [id number] Docusate Sodium (Docusate Sodium 100 Mg Cap) 100 mg PO BID [facility] Stop: 05/26/20 20:59 Last Admin: 04/28/20 07:28 Dose: 100 mg Documented by: [id number] Admin: 04/27/20 20:24 Dose: 100 mg Documented by: [id number] Admin: 04/27/20 08:43 Dose: 100 mg Documented by: [id number] Admin: 04/26/20 20:57 Dose: 100 mg Documented by: [id number] Ferrous Gluconate (Ferrous Gluconate 324 Mg Tab) 324 mg PO BIDM [facility] Stop: 05/26/20 16:59 Last Admin: 04/28/20 07:28 Dose: 324 mg Documented by: [id number] Admin: 04/27/20 17:38 Dose: 324 mg Documented by: [id number] Admin: 04/27/20 08:43 Dose: 324 mg Documented by: [id number] Admin: 04/26/20 18:11 Dose: 324 mg Documented by: [id number] Hydrochlorothiazide (Hydrochlorothiazide 25 Mg Tab) 12.5 mg PO DAILY [facility] Stop: 05/28/20 08:59 Last Admin: 04/28/20 07:30 Dose: 12.5 mg Documented by: [id number] Insulin Aspart (Insulin Aspart 100 Units/Ml 3 Ml Pen) 0 units SC ACHS [facility]; Protocol Stop: 05/26/20 17:29 Last Admin: 04/28/20 07:39 Dose: 8 units Documented by: [id number] Cosigned by: [id number] Admin: 04/27/20 21:55 Dose: 3 units Documented by: [id number] Cosigned by: [id number] Admin: 04/27/20 17:36 Dose: 6 units Documented by: [id number] Cosigned by: [id number] Admin: 04/27/20 13:16 Dose: 6 units Documented by: [id number] Cosigned by: [id number] Admin: 04/27/20 08:46 Dose: 5 units Documented by: [id number] Cosigned by: [id number] Admin: 04/26/20 20:59 Dose: 2 units Documented by: [id number] Cosigned by: [id number] Admin: 04/26/20 18:14 Dose: 4 units Documented by: [id number] Cosigned by: [id number] Insulin Human NPH (Insulin Human Nph) 13 units SC BIDM [facility]; Protocol Stop: 05/28/20 07:59 Last Admin: 04/28/20 07:45 Dose: 13 units Documented by: [id number] Cosigned by: [id number] Losartan Potassium (Losartan Potassium 50 Mg Tab) [facility] [place]: 05/27/20 08:59 Last Admin: 04/28/20 07:28 Dose: 100 mg Documented by: [id number] Admin: 04/27/20 08:45 Dose: 100 mg Documented by: [id number] Metformin HCl (Metformin Hcl 850 Mg Tab) 850 mg PO BIDM [facility] Stop: 05/28/20 07:59 Last Admin: 04/28/20 08:15 Dose: 850 mg Documented by: [id number] Multivitamins (Multivitamin Tab) 1 tab PO [facility] Stop: 05/27/20 08:59 Last Admin: 04/28/20 07:30 Dose: 1 tab Documented by: [id number] Admin: 04/27/20 08:45 Dose: 1 tab Documented by: [id number] Oxycodone HCl (Oxycodone Hcl Ir 5 Mg Tab (Immediate Release)) 5 - 10 mg PO Q4H PRN PRN Reason: Pain or Pre PT Stop: 05/10/20 16:52 Last Admin: 04/27/20 17:42 Dose: 5 mg Documented by: [id number] Admin: 04/27/20 08:53 Dose: 5 mg Documented by: [id number] Sennosides (Senna 8.6 Mg Tab) 17.2 mg PO [facility] Stop: 05/26/20 20:59 Last Admin: 04/27/20 20:23 Dose: 17.2 mg Documented by: [id number] Admin: 04/26/20 20:58 Dose: 17.2 mg Documented by: [id number] Tolterodine Tartrate (Tolterodine Tartrate La 2 Mg Capcr) 2 [place] [facility] [place]: 05/27/20 08:59 Last Admin: 04/28/20 07:29 Dose: 2 mg Documented by: [id number] Admin: 04/27/20 08:45 Dose: 2 mg Documented by: [id number] Vitamin D (Cholecalciferol 1,000 Units 25 Mcg Tab) 2,000 [place] [facility] [place]: 05/27/20 08:59 Last Admin: 04/28/20 07:31 Dose: 2,000 units Documented by: [id number] Admin: 04/27/20 08:45 Dose: 2,000 units Documented by: [id number] Discontinued Medications Bacitracin (Bacitracin Inj 50,000 Unit Vial) Confirm Administered Dose 50,000 units .ROUTE .STK-MED ONE Stop: 04/26/20 12:58 Last Admin: 04/26/20 15:33 Dose: 50,000 units Documented by: [id number] Ropivacaine 150 mg/Bupivacaine HCl 20 ml/Epinephrine HCl 0.15 mg/Ketorolac Tromethamine 30 mg/Ketamine HCl 10 mg/ Clonidine HCl 100 mcg/ Sodium Chloride 87.35 mls @ 0 mls/hr INSTIL TODAY@0600 [facility]; Protocol Stop: 04/26/20 18:00 Last Admin: 04/26/20 15:33 Dose: 93.4 mls/hr Documented by: [id number] Lactated Ringer's (Lr) 1,000 mls @ 15 mls/hr IV .Q24H [facility] Stop: 04/26/20 18:00 Last Infusion: 04/26/20 13:49 Dose: 0 mls/hr Documented by: [id number] Admin: 04/26/20 11:18 Dose: 15 mls/hr Documented by: [id number] Cefazolin Sodium (Ancef 2000mg) 2,000 mg in 15 mls @ 3.75 mls/min IV PREOP ONE Stop: 04/26/20 11:40 Last Admin: 04/26/20 13:48 Dose: 3.75 mls/min Documented by: [id number] Cefazolin Sodium (Ancef 2000mg) 2,000 mg in 15 mls @ 3.75 mls/min IV Q8H [facility]; Protocol Stop: 04/27/20 06:03 Last Admin: 04/27/20 05:25 Dose: 3.75 mls/min Documented by: [id number] Admin: 04/26/20 20:58 Dose: 3.75 mls/min Documented by: [id number] Sodium Chloride (Nss 1000ml) 1,000 mls @ 100 mls/hr IV .Q10H [facility] Stop: 05/26/20 16:52 Last Admin: 04/27/20 03:26 Dose: Not Given Documented by: [id number] Infusion: 04/27/20 03:22 Dose: 0 mls/hr Documented by: [id number] Admin: 04/26/20 17:44 Dose: 100 mls/hr Documented by: [id number] Insulin Aspart (Insulin Aspart 100 Units/Ml 3 Ml Pen) 0 units SC 0000,0400 [facility]; Protocol Stop: 04/27/20 04:01 Last Admin: 04/27/20 04:08 Dose: Not Given Documented by: [id number] Admin: 04/27/20 00:03 Dose: 1 units Documented by: [id number] Cosigned by: [id number] Insulin Human NPH (Insulin Human Nph) 10 units SC ONE ONE; Protocol Stop: 04/26/20 17:31 Last Admin: 04/26/20 18:19 Dose: 10 units Documented by: [id number] Cosigned by: [id number] Insulin Human NPH (Insulin Human Nph) 10 units SC BIDM ONE; Protocol Stop: 04/27/20 08:01 Last Admin: 04/27/20 08:46 Dose: 10 units Documented by: [id number] Cosigned by: [id number] Insulin Human NPH (Insulin Human Nph) 10 units SC BIDM [facility]; Protocol Stop: 05/27/20 16:59 Last Admin: 04/27/20 17:37 Dose: 10 units Documented by: [id number] Cosigned by: [id number] Miscellaneous (Ortho Joint Anesthetic ) Confirm Administered Dose 1 ea .ROUTE .[facility] ONE Stop: 04/26/20 12:58 Last Admin: 04/26/20 15:33 Dose: Not Given Documented by: [id number]
[2020-04-28] MEDS ORDERED: hydroCHLOROthiazide 25 MG TAB PO SCH (09:00)
--- NOTE | 2020-04-28 11:16 | Orthopedic Progress Note ---
Date of Service April 28, 2020 Assessment & Plan (1) Primary osteoarthritis of left knee: POD#2 left TKA -PT/OT -Pain management -DVT prophylaxis-ASA 81 mg BID x 1 mo, SCDs, TEDs -D/C planning-home with home health PT after PT today Admission and Anticipated Discharge Date Admission Date: April 26, 2020 Subjective POD # 2 s/p Left TKA Review of Systems Constitutional: no fever, no chills and no sweats Respiratory: no cough and no dyspnea Cardiovascular: no chest pain and no dyspnea Gastrointestinal: no abdominal pain, no nausea and no vomiting Physical Exam Physical Exam: Vital Signs Temp 36.6 C 04/28/20 05:30 Pulse 67 04/28/20 05:30 Resp 16 04/28/20 05:30 BP 154/84 H 04/28/20 06:40 Pulse Ox 93 04/28/20 05:30 Intake & Output 04/27/20 04/28/20 04/28/20 18:59 06:59 18:59 Intake Total 720 / 720 Output Total 125 / 375 250 / 375 Balance 595 / 345 -250 / 345 Intake: Oral 720 / 720 Output: Drain Output 125 / 375 250 / 375 Left Knee Hemo vac #1 125 / 375 250 / 375 Other: # Unmeasured Voi ds 4 1 Constitutional: WD/WN, vitals as above no acute distress Musculoskeletal: left lower extremity: NVDI, calf SNT, negative jyothi sign. DP palpable, able to wiggle toes/ankle movement without difficulty. DONY dressing clean dry and intact. expected post-operative bruising noted. Results & Data ([facility]) Vital Signs (Past 12 Hours) Vital Signs Temp Pulse Resp BP Pulse Ox 04/28/20 06:40 154/84 H 04/28/20 05:30 36.6 C 67 16 169/83 H 93 Laboratory Results Vital Signs Temp 36.6 C 04/28/20 05:30 Pulse 67 04/28/20 05:30 Resp 16 04/28/20 05:30 BP 154/84 H 04/28/20 06:40 Pulse Ox 93 04/28/20 05:30 Intake & Output 04/27/20 04/28/20 04/28/20 18:59 06:59 18:59 Intake Total 720 / 720 Output Total 125 / 375 250 / 375 Balance 595 / 345 -250 / 345 Intake: Oral 720 / 720 Output: Drain Output 125 / 375 250 / 375 Left Knee Hemovac #1 125 / 375 250 / 375 Other: # Unmeasured Voids 4 1 Laboratory Results WBC 7.71 K/uL (4.8-10.8) 04/27/20 05:20 RBC 4.04 M/uL (4.2-5.4) L 04/27/20 05:20 Hgb 11.4 g/dL (12.0-16.0) L 04/28/20 05:14 Hct 34.6 % (37-47) L 04/28/20 05:14 MCV 94.6 fL (80-100) 04/27/20 05:20 MCH 30.4 pg (25-34) 04/27/20 05:20 MCHC 32.2 g/dL (32-36) 04/27/20 05:20 RDW Std Deviation 46.7 fL (36.4-46.3) H 04/27/20 05:20 RDW Coeff of Pascale 13.5 % (11.5-14.5) 04/27/20 05:20 Plt Count 168 K/uL (130-400) 04/27/20 05:20 MPV 11.2 fL (7.4-10.4) H 04/27/20 05:20 Immature Gran % (Auto) 0.0 % 03/19/20 14:45 Neut % (Auto) 49.0 % 03/19/20 14:45 Lymph % (Auto) 42.8 % 03/19/20 14:45 [place] % (Auto) 5.9 % 03/19/20 14:45 Eos % (Auto) 2.0 % 03/19/20 14:45 Baso % (Auto) 0.3 % 03/19/20 14:45 Neut # (Auto) 2.91 K/uL (1.4-6.5) 03/19/20 14:45 Lymph # (Auto) 2.54 K/uL (1.2-3.4) 03/19/20 14:45 [place] # (Auto) 0.35 K/uL (0.11-0.59) 03/19/20 14:45 Eos # (Auto) 0.12 K/uL (0-0.5) 03/19/20 14:45 Baso # (Auto) 0.02 K/uL (0-0.2) 03/19/20 14:45 Immature Gran # (Auto) 0.00 K/uL (0.00-0.02) 03/19/20 14:45 PT 10.1 Seconds (9.0-12.0) 03/19/20 14:45 INR 1.0 (0.9-1.1) 03/19/20 14:45 APTT 24.7 Seconds (21.0-31.0) 03/19/20 14:45 PTT Ratio 0.9 03/19/20 14:45 Sodium 142 mmol/L (136-145) 04/28/20 05:14 Potassium 3.9 mmol/L (3.5-5.1) 04/28/20 05:14 Chloride 109 mmol/L (98-107) H 04/28/20 05:14 Carbon Dioxide 29 mmol/L (21-32) 04/28/20 05:14 Anion Gap 4.0 (3-11) 04/28/20 05:14 BUN 13 mg/dl (7-18) 04/28/20 05:14 Creatinine 0.62 mg/dl (0.6-1.2) 04/28/20 05:14 Est Cr Clr Drug Dosing 86.0 ml/min 04/28/20 05:14 Est GFR ( Amer) 101.5 04/28/20 05:14 Est GFR (Non-Af Amer) 87.6 04/28/20 05:14 BUN/Creatinine Ratio 20.6 (10-20) H 04/28/20 05:14 Glucose 167 mg/dl (70-99) H 04/28/20 05:14 POC Glucose 167 mg/dl (70-99) H 04/28/20 06:39 Estimat Average Glucose 183 mg/dl 03/19/20 14:45 Hemoglobin A1c 8.0 % (4.5-5.6) H 03/19/20 14:45 Calcium 9.5 mg/dl (8.5-10.1) 04/28/20 05:14 Magnesium 2.0 mg/dl (1.8-2.4) 04/27/20 05:20 Albumin 3.5 gm/dl (3.4-5.0) 03/19/20 14:45 Urine Color Yellow 03/19/20 Unknown Urine Appearance Clear (Clear) 03/19/20 Unknown Urine pH 5.0 (4.5-7.5) 03/19/20 Unknown Ur Specific [place] 1.033 (1.000-1.030) H 03/19/20 Unknown Urine Protein Negative (Negative) 03/19/20 Unknown Urine Glucose (UA) 3+ (Negative) H 03/19/20 Unknown Urine Ketones Negative (Negative) 03/19/20 Unknown Urine Blood Negative (Negative) 03/19/20 Unknown Urine Nitrite Negative (Negative) 03/19/20 Unknown Urine Bilirubin Negative (Negative) 03/19/20 Unknown Urine Urobilinogen Negative (Negative) 03/19/20 Unknown Ur Leukocyte Esterase Negative (Negative) 03/19/20 Unknown Blood Type A Positive 03/19/20 14:45 Antibody Screen NEGATIVE 03/19/20 14:45
[2020-04-28] MEDS: amLODIPine BESYLATE 5 MG TAB PO SCH (11:40)
--- NOTE | 2020-04-30 10:43 | Discharge Summary ---
Date of Service April 30, 2020 Admission HPI Per Admitting Provider 74 year old female with PMHx significant for HTN, high cholesterol, DM2, hyperparathyroid, and axiety presents with longstanding left knee pain. Pain interfering with ability to carry out daily activity. She has failed conservative measures including injections and anit-inflammatories. She would like to proceed with knee replacement. Patient denies headaches, sweats, fevers, chills, double vision, blurred vision, cough, sore throat, dysphagia, chest pain, sob, wheezing, n/v/d/c, numbness, tingling, fatigue, urinary symptoms, mood disorders. ROS positive for left knee pain and stiffness. Admission Exam Per Admitting Provider Physical Exam Constitutional: well developed and well nourished; no acute distress Eyes: PERRL, conjunctivae normal, anicteric sclerae ENMT: external ear and nose normal, oropharynx normal Neck: trachea midline, no thyromegaly Respiratory: normal respiratory effort, lungs clear to auscultation Cardiovascular: RRR, no murmur, no edema Musculoskeletal: Left knee: Varus alignment, mild effusion. Tenderness medial joint line. Positive Aftab's. Stable to valgus and varus stress. ROM 10-125 degrees. Skin: no rashes, warm and dry Neurologic: patellar DTR's 2+ bilat, sensation intact Psychiatric: A+Ox3, euthymic affect Principal Diagnosis Left knee osteoarthritis Discharge Exam Subjective POD # 2 s/p Left TKA Review of Systems Constitutional: no fever, no chills and no sweats Respiratory: no cough and no dyspnea Cardiovascular: no chest pain and no dyspnea Gastrointestinal: no abdominal pain, no nausea and no vomiting Physical Exam Physical Exam: Vital Signs Temp 36.6 C 04/28/20 05:30 Pulse 67 04/28/20 05:30 Resp 16 04/28/20 05:30 BP 154/84 H 04/28/20 06:40 Pulse Ox 93 04/28/20 05:30 Intake & Output 04/27/20 04/28/20 04/28/20 18:59 06:59 18:59 Intake Total 720 / 720 Output Total 125 / 375 250 / 375 Balance 595 / 345 -250 / 345 Intake: Oral 720 / 720 Output: Drain Output 125 / 375 250 / 375 Left Knee Hemo vac #1 125 / 375 250 / 375 Other: # Unmeasured Voi ds 4 1 Constitutional: WD/WN, vitals as above no acute distress Musculoskeletal: left lower extremity: NVDI, calf SNT, negative jyothi sign. DP palpable, able to wiggle toes/ankle movement without difficulty. DONY dressing clean dry and intact. expected post-operative bruising noted. Discharge Data Allergies Allergy/AdvReac Type Severity Reaction Status Date / Time No Known Allergies Allergy Verified 04/26/20 10:44 Consultations 04/21/20 14:54 Consult Hospitalist Routine 04/26/20 16:53 Consult Case Management - Discharge Planning Routine Procedures Performed Operation Date: 04/26/20 12:50 Actual Procedures p Left Total Knee Arthroplasty(Left) - Rigoberto Mcqueen MD Ordered Studies 04/26/20 05:00 US - OR guided needle placemen Routine Hospital Course (1) Primary osteoarthritis of left knee: Patient was admitted on the above-noted date and had the above-noted surgery performed of which she tolerated well.On the first postoperative day, she was doing well. She was having some pain but was controlled. Up ambulating in the room without complication. No complaints. Dressings were clean, dry, and intact. Calves are nontender. Neurovascular is intact. She was started on PT and OT protocols and continued on DVT prophylaxis and pain management. Medical management was provided by [facility] service which continue to see the patient during her stay. Hemoglobin remained stable. By her second postoperative day, she continue remained stable. She was progressing with her physical therapy and vital signs were stable. Dony dressing was intact and dry. Calves were soft and nontender. Neurovascular intact. She was remain medically stable as well as orthopedically stable and was felt that she could be discharged home. Total Time Total Time Spent Total Time Spent (In Minutes): 5 Discharge Plan Discharge Items Patient Disposition: Home - Home Health Services Reason For Visit: Osteoarthritis, Left Knee Discharge Diagnosis: Osteoarthritis Left Knee Condition on Discharge: Good Activity: Per Instructions section Lifting: Wait until after follow-up appointment Weightbearing: Left weightbearing Weightbearing Comment: as tolerated with walker Non-emergency contact: Surgeon Call non-emergency contact if: your pain is not controlled, your temperature is above 101.5, your wound has increased redness and your wound has increased drainage Follow-up/Referrals: Hassan,Dolores M., DO [Primary Care Provider] - Rigoberto Mcqueen MD [Surgeon] - (follow up in 10-14 days) Diet: Carb Consistent or DM2 Addtl Attending Provider Instructions: Resume your Doxycycline when you have stopped taking the antibiotic Dr. Mcqueen prescribed. ACTIVITY RECOMMENDATIONS: SELF CARE INSTRUCTIONS AFTER TOTAL KNEE REPLACEMENT A. You may need to continue a physical therapy program after discharge from the hospital. There are several options available to you. Your doctor will assist you in selecting the best one for you. 1. An out-patient facility 2 to 3 times a week for therapy or home therapy. 2. Continue working on all exercises taught to you in the hospital. Your goals should be to increase bending of your knee to 90 degrees and beyond and to fully straighten your knee. B. You may progress at your own pace from walking with a walker or crutches to a cane; then to no assistive devices. C. Make walking a part of your daily routine. Be up as much as comfortable with rest periods throughout the day. Rest with leg elevation is very important. Use the ice wrap frequently for the first 3-4 weeks. D. There are no restrictions on activities. You may ride in a car, shop, participate in supervisory it specialist and all social activities. E. Wear the long elastic stockings (PRANEETH hose) 20 hours a day for 2 weeks after surgery. They can be removed several times a day for laundering and for a bath. F. You may shower, no tub baths until cleared by your doctor. SPECIAL CARE INSTRUCTIONS: VERY IMPORTANT TO READ AND REVIEW A. There are a few signs you need to watch for after you are home. Call [facility] if you notice any of the followin. Increased severe knee pain. Some pain is expected especially when you exercise. 2. Increased swelling in your leg or knee; pain or swelling of the calf muscle in either lower leg. 3. Any fluid drainage from the incision. 4. Shortness of breath or chest pain. B. Please call [facility] at if you have any concerns or questions about your operation or recovery. The doctor or his nurse will return your call promptly. C. You must take antibiotics before dental work, bladder, bowel or other surgery. Your doctor will provide you with a permanent care to carry describing this precaution. IMPORTANT: * REMEMBER TO TAKE ASPIRIN, 81 MG, TWICE DAILY FOR 4 WEEKS UNLESS OTHERWISE DIRECTED. THIS IS YOUR BLOOD THINNER. * HIGH RISK PATIENTS MAY BE PRESCRIBED A STRONGER BLOOD THINNER. THIS WILL BE PROVIDED AT DISCHARGE. * CALL IF INCREASED PAIN, REDNESS, DRAINAGE OR FEVER GREATER THAT 101. * WEAR PRANEETH HOSE 20 HOURS PER DAY FOR 2 WEEKS. * YOU MAY HAVE A LARGE BAND-AID LIKE DRESSING (SILVERON). THIS WILL REMAIN ON YOUR INCISION FOR 7 DAYS, THEN CAN BE REMOVED. DONY Dressing- This is a large suction dressing covering your incision. This will help pull any excess drainage from the wound and allow your incision to heal properly. You may shower with this if you can keep the unit outside of the shower. If any bleeding or leakage is noted please call your doctor's office. This will remain on your incision for 7 days and then should be removed. This can be done yourself or by the home nursing staff if applicable. The entire unit is disposable once removed. Once removed, keep incision clean and dry. If redness or drainage is noted, please call your surgeon. IF INCISION IS LEAKING THROUGH DRESSING, CALL THE OFFICE . FOLLOW UP VISIT: If appointment is not already scheduled: Please call [facility] to make a follow-up appointment for 2 weeks after your surgery at . Pending Studies at Discharge: No Stand-Alone Forms: My [facility], Opioid Pain Management, Smoking Cessation Medications and DC Order Prescriptions: New acetaminophen 500 mg Tablet 1,000 mg PO Q8 14 Days Qty: 84 RF: 0 aspirin 81 mg Tablet,Delayed Release (Dr/Ec) 81 mg PO BID 30 Days Qty: 60 RF: 0 cefadroxil 500 mg capsule 500 mg PO BID Qty: 14 RF: 0 oxycodone 5 mg Tablet 5 mg PO Q4H MDD 6 PRN (Reason: pain) Qty: 30 RF: 0 polyethylene glycol 3350 [Miralax] 17 gram powder in packet 17 g PO DAILY PRN (Reason: constipation) Qty: 5 RF: 0 Continued diclofenac sodium 1 % gel 4 gm TOP .COMPLEX RF: 0 losartan 100 mg tablet 100 mg PO QAM RF: 0 lorazepam 1 mg tablet 1 mg PO QAM RF: 0 citalopram 10 mg tablet 10 mg PO QAM RF: 0 citalopram [Celexa] 20 mg tablet 20 mg PO QAM RF: 0 atorvastatin 40 mg tablet 40 mg PO HS RF: 0 metformin 850 mg tablet 850 mg PO BID RF: 0 Novolog Mix 70-30 U-100 Insuln 100 unit/mL (70-30) solution See Rx Instructions .ROUTE .COMPLEX RF: 0 clindamycin phosphate 1 % lotion 1 appln TOP BID RF: 0 PreserVision AREDS [id number],320-226-200 [id number] capsule 1 cap PO BID RF: 0 amlodipine 5 mg tablet 5 mg PO QDL RF: 0 cyanocobalamin (vitamin B-12) 1,000 mcg capsule 1,000 mcg PO QAM RF: 0 (DME) lancets [OneTouch UltraSoft Lancets] misc See Rx Instructions .ROUTE .MEDSUPPLY Qty: 50 RF: 0 (DME) OneTouch Ultra Blue Test Strip strip See Rx Instructions .ROUTE .MEDSUPPLY Qty: 10 RF: 0 cholecalciferol (vitamin D3) 5,000 unit capsule 2,000 units PO QAM RF: 0 atenolol 50 mg tablet 50 mg PO HS RF: 0 tolterodine 2 mg Capsule,Extended Release 24hr 2 mg PO QAM RF: 0 Jardiance 25 mg Tablet 25 mg PO QDL RF: 0 hydrochlorothiazide 12.5 mg Tablet 12.5 mg PO DAILY RF: 0 Discontinued doxycycline hyclate 50 mg capsule 50 mg PO Q2D RF: 0 aspirin [Enteric Coated Aspirin] 81 mg tablet,delayed release (DR/EC) 81 mg PO QAM RF: 0 Discharge Orders: Discharge Order (Routine); Ordered 04/28/20 Ordered By: Deni Guillaume/Other Patient Handouts: DVT Post Op Prevention, High Blood Sugar (Hyperglycemia), Hypoglycemia (Low Blood Sugar), Managing Type 2 Diabetes Admission Data Admit Date/Time: 04/26/20 15:59 Attending Provider: Rigoberto Mcqueen Admit Provider: Rigoberto Mcqueen Primary Care Provider: Dolores Hassan Other Providers: Damien Biggs ; Will Topete [facility] ; Karyn Bell I. Other Interventions: Discharge Summary Assessment (RN) Last Done: 04/28/20 12:04
== END 2020-04-28 12:35 | disposition home health service (06) ==
LOC: 3E 10:16 → ASU 10:16